=== PATIENT | male | born 1975 | race Caucasian/White ===

== ENCOUNTER 2021-11-18 13:06 | Emergency (ER) | payer MEDICARE ==
[~2021-11-18] VITALS: Ht 182.9 cm; Wt 75.0 kg
[2021-11-18 13:27] VITALS: BP 116/76
[2021-11-18] MEDS ORDERED: gabapentin 300mg capsule PO ONE (14:45)
[2021-11-18] MEDS ORDERED: OLANZapine 5mg rapidly disint. tablet PO ONE (14:45)
[2021-11-18] MEDS ORDERED: divalproex 250mg tablet, delayed-release PO ONE (14:45)
[2021-11-18] MEDS ORDERED: buprenorphine/naloxone 8MG-2MG SUBlingual film SL ONE (14:45)
[2021-11-18] MEDS ORDERED: GABA800T11 PO (15:03)
[2021-11-18] MEDS ORDERED: DIVA500T2 PO (15:03)
== END 2021-11-18 15:14 | disposition home or self-care (01) ==
LOC: ER 13:06
DX: Z76.0 Encounter for issue of repeat prescription (principal); G40.909 Epilepsy, unspecified, not intractable, without status epilepticus; Z59.00 Homelessness unspecified
CPT/HCPCS: 99284

== ENCOUNTER 2021-11-19 07:22 | Emergency (ER) | payer MEDICARE, OTHER ==
[~2021-11-19] VITALS: Ht 182.9 cm; Wt 75.0 kg
[~2021-11-19 07:22] MED LIST: DIVA500T2 PO; GABA800T11 PO
[2021-11-19 07:24] VITALS: BP 128/65
[2021-11-19] MEDS ORDERED: buprenorphine/naloxone 8MG-2MG SUBlingual film SL ONE (09:35)
== END 2021-11-19 10:02 | disposition home or self-care (01) ==
LOC: ER 07:22
DX: R11.2 Nausea with vomiting, unspecified (principal); Z76.0 Encounter for issue of repeat prescription; Z59.00 Homelessness unspecified; Z79.899 Other long term (current) drug therapy
CPT/HCPCS: 99283

== ENCOUNTER 2021-11-20 11:24 | Emergency (ER) | payer MEDICARE, OTHER ==
[~2021-11-20] VITALS: Ht 182.9 cm; Wt 75.0 kg
[2021-11-20 11:43] VITALS: BP 145/87
[2021-11-20] MEDS ORDERED: buprenorphine/naloxone 8MG-2MG SUBlingual film SL ONE (12:25)
== END 2021-11-20 12:58 | disposition home or self-care (01) ==
LOC: ER 11:25
DX: Z76.0 Encounter for issue of repeat prescription (principal); Z87.891 Personal history of nicotine dependence; Z59.00 Homelessness unspecified; Z56.0 Unemployment, unspecified
CPT/HCPCS: 99282

== ENCOUNTER 2021-12-24 11:35 | Emergency (ER) | payer MEDICARE, OTHER ==
[~2021-12-24] VITALS: Ht 182.9 cm; Wt 79.5 kg
[2021-12-24 12:34] LABS: BASOPHILS % (AUTO) 0.2 % (0-1); EOSINOPHILS # (AUTO) 0.1 X10'3 (0-0.9); HEMATOCRIT 34.7 % (42.0-52.0); HEMOGLOBIN 11.7 g/dl (14.0-17.9); LYMPHOCYTES # (AUTO) 1.8 X10'3 (1.1-4.8); LYMPHOCYTES % (AUTO) 32.7 % (21-51); MEAN CORPUSCULAR HEMOGLOBIN 28.6 PG (27.0-31.0); MEAN CORPUSCULAR HGB CONC 33.6 g/dL (33.0-36.5); MEAN CORPUSCULAR VOLUME 85.1 FL (78-98); MEAN PLATELET VOLUME 6.8 FL (7.4-10.4); MONOCYTES # (AUTO) 0.4 X10'3 (0-0.9); MONOCYTES % (AUTO) 6.5 % (2-12); NEUTROPHILS # (AUTO) 3.3 X10'3 (1.8-7.7); NEUTROPHILS % (AUTO) 59.6 % (42-75); PLATELET COUNT 218 X10'3 (140-440); RED BLOOD COUNT 4.08 X10'6 (4.70-6.10); RED CELL DISTRIBUTION WIDTH 15.9 % (11.5-14.5); WHITE BLOOD COUNT 5.5 X10'3 (4.5-11.0)
[2021-12-24 12:56] LABS: ALANINE AMINOTRANSFERASE 27 U/L (12-78); ALBUMIN 3.3 G/DL (3.4-5.0); ALBUMIN/GLOBULIN RATIO 0.8 (1.1-1.5); ALKALINE PHOSPHATASE 46 IU/L (46-116); ANION GAP 6 (8-16); ASPARTATE AMINO TRANSFERASE 24 U/L (10-37); BILIRUBIN,TOTAL 0.3 MG/DL (0.1-1.0); BLOOD UREA NITROGEN 14 MG/DL (7-18); BUN/CREATININE RATIO 14.4 (5.4-32.0); CALCIUM 8.8 MG/DL (8.5-10.1); CHLORIDE 106 MMOL/L (99-107); CREATININE 0.97 MG/DL (0.60-1.10); LIPASE < 50 U/L (73-393); SODIUM 141 MMOL/L (135-145); TOTAL CARBON DIOXIDE 29.4 MMOL/L (24-32); TOTAL PROTEIN 7.3 G/DL (6.4-8.2); eGFR 84 ML/MIN
[2021-12-24 13:02] LABS: GLUCOSE 91 MG/DL (70-104)
--- NOTE | 2021-12-24 14:11 | NUR ---
RELIEVING RN FOR LUNCH, PROVIDER AT BEDSIDE TO EVAL PT
[2021-12-24] MEDS ORDERED: pantoprazole 40mg Tablet.DR PO ONE (15:00)
[2021-12-24 15:15] LABS: CLARITY,URINE CLEAR (Clear); COLOR,URINE YELLOW (Yellow); GLUCOSE, URINE NEGATIVE (Neg); KETONES,URINE NEGATIVE (Neg); LEUKOCYTE ESTERASE ,URINE NEGATIVE (Neg); NITRITES, URINE NEGATIVE (Neg); OCCULT BLOOD,URINE NEGATIVE (Neg); PH,URINE 7.5 (4.8-8.0); PROTEIN,URINE NEGATIVE (Neg)
[2021-12-24 15:16] LABS: UA COLLECTION TYPE CLN CATCH MIDSTREAM
[2021-12-24] MEDS ORDERED: BICT1TAB PO ×2 (15:24→15:26)
[2021-12-24] MEDS ORDERED: OMEP20TA43 PO (15:24)
[2021-12-24] MEDS ORDERED: DIVA-76 PO ×2 (15:24→15:26)
[2021-12-24] MEDS ORDERED: GABA-534 PO ×2 (15:24→15:26)
[2021-12-24] MEDS ORDERED: HYDR-3927 PO ×2 (15:24→15:26)
[2021-12-24 16:01] VITALS: BP 130/80
== END 2021-12-24 16:04 | disposition home or self-care (01) ==
LOC: ER 11:35
DX: Z76.0 Encounter for issue of repeat prescription (principal); K92.2 Gastrointestinal hemorrhage, unspecified; M54.50 Low back pain, unspecified; R53.1 Weakness; K92.1 Melena; Z86.69 Personal history of other diseases of the nervous system and sense organs; Z98.890 Other specified postprocedural states; Z59.00 Homelessness unspecified; Z56.0 Unemployment, unspecified; Z79.899 Other long term (current) drug therapy
CPT/HCPCS: 36415; 80053; 81003; 83690; 85025; 99284

== ENCOUNTER 2021-12-25 13:39 | Emergency (ER) | payer MEDICARE ==
[~2021-12-25 13:39] MED LIST changes: +BICT1TAB PO; +DIVA-76 PO; +GABA-534 PO; +HYDR-3927 PO; +OMEP20TA43 PO
--- NOTE | 2021-12-25 14:22 | NUR ---
Patient not in lobby x3.
== END 2021-12-25 14:23 | disposition left against medical advice (07) ==
LOC: ER 13:40
DX: Z76.0 Encounter for issue of repeat prescription (principal); Z53.21 Procedure and treatment not carried out due to patient leaving prior to being seen by health care provider

== ENCOUNTER 2022-01-22 08:30 | Emergency (ER) | payer BC, MEDICAID ==
[~2022-01-22] VITALS: Ht 182.9 cm; Wt 83.6 kg
[2022-01-22 08:36] VITALS: BP 129/69
[2022-01-22] MEDS ORDERED: ibuprofen 200mg tablet PO ONE (09:15)
[2022-01-22] MEDS ORDERED: neomy sulf/polymyx B sulf/HC 10ml otic suspension RIGHT EAR ONE (09:15)
[2022-01-22] MEDS ORDERED: IBUP-1984 PO (09:21)
== END 2022-01-22 09:46 | disposition home or self-care (01) ==
LOC: ER 08:31
DX: H60.91 Unspecified otitis externa, right ear (principal); Z59.00 Homelessness unspecified; Z56.0 Unemployment, unspecified
CPT/HCPCS: 99283